=== PATIENT | male | born 1965 | race Caucasian/White ===

== ENCOUNTER 2016-08-06 14:35 | Emergency (ER) | payer SELFPAY ==
[2016-08-06 15:00] LABS: BASOPHILS % 1.3 (0.0-1.5); EOSINOPHILS % 3.1 % (0.0-6.8); MEAN CORPUSCULAR HEMOGLOBIN 31.4 pg (28.0-34.0); MEAN CORPUSCULAR VOLUME 91.9 fl (80.0-100.0); MONOCYTES % 4.9 % (0.0-11.0); NEUTROPHILS # 5.7 # k/uL (1.4-7.7)
[2016-08-06] MEDS: KETOROLAC TROMETHAMINE 30 MG/1ML VIAL IVP ONE (15:00)
[2016-08-06] MEDS: 0.9 % SODIUM CHLORIDE 1,000 ML IV ONE (15:10)
[2016-08-06 15:16] LABS: eGFR (African) > 60; eGFR (Non-African) > 60
[2016-08-06] MEDS: ORPHENADRINE CITRATE 60 MG/2ML IM ONE (15:26)
--- NOTE | 2016-08-06 16:32 | ED Physician Documentation ---
Abdominal Pain - HISTORIAN Historian: patient, friend - HPI Stated Complaint: left sided back pain Chief Complaint: Abdominal Pain Onset: days ago (yesterday) Timing: worse Context: denies: out of country travel, bad food, recent trauma Severity: moderate Quality: pain, sharp Associated Symptoms: back pain, other (flank pain). denies: fever, chills, nausea, vomiting, diarrhea Further Comments: yes (51 year old male patient presents with complaint of left flank and LLQ pain. Patient states he coughed last night and fell to his knees in pain. Reports pain worse with movement. Denies fever, nausea or vomiting. Last BM yesterday.) - ROS CONST: no problems GI/: none CVS/RESP: none EYES/ENT: none MS/SKIN/LYMPH: none NEURO/PSYCH: none - SOCIAL HX Smoking History: cigarettes - FAMILY HX Family History: denies: none - PAST HX Past History: none Ischemic Bowel Risk Factors: none Surgeries/Procedures: appendectomy Home Medications: Ambulatory Orders Medication Instructions Recorded NK [NK] 07/02/12 Allergies/Adverse Reactions: Allergies Allergy/AdvReac Type Severity Reaction Status Date / Time acetaminophen [From Percocet] Allergy Verified 08/06/16 15:02 hydrocodone bitartrate Allergy Verified 07/02/12 16:43 [From Vicodin] oxycodone HCl [From Percocet] Allergy Verified 08/06/16 15:02 Penicillins Allergy Verified 07/02/12 16:43 - VITAL SIGNS Vital Signs: Vital Signs Temp Pulse Resp BP Pulse Ox 100.9 F H 74 18 163/104 98 08/06/16 15:02 08/06/16 15:02 08/06/16 15:02 08/06/16 15:02 08/06/16 15:02 - REVIEWED ASSESSMENTS Nursing Assessment Reviewed: Yes Vitals Reviewed: Yes Progress - Progress Progress: Significant amount of air noted on rib xrays, will progress with abd complete. Reviewed lab and xray results with patient. Questions answered, reviewed discharge instructions. 1/2 bottle magnesium citrate given in ER, will discharge with remainder. ED Results Lab/Radiology - Lab Results Lab Results: Lab Results 08/06/16 08/06/16 14:44 14:44 WBC 9.60 K/ul K/ul (4.00-12.00) RBC 4.96 M/ul M/ul (3.90-5.20) Hgb 15.6 g/dL g/dL (12.0-18.0) Hct 45.6 % % (37.0-53.0) MCV 91.9 fl fl (80.0-100.0) MCH 31.4 pg pg (28.0-34.0) MCHC 34.2 g/dL g/dL (30.0-36.0) RDW 12.7 % % (11.3-14.3) Plt Count 211 K/mm3 K/mm3 (130-400) Neut % (Auto) 59.1 % % (39.0-79.0) Lymph % (Auto) 30.1 % % (16.0-50.0) [place] % (Auto) 4.9 % % (0.0-11.0) Eos % (Auto) 3.1 % % (0.0-6.8) Baso % (Auto) 1.3 (0.0-1.5) Neut # (Auto) 5.7 # k/uL # k/uL (1.4-7.7) Lymph # (Auto) 2.9 # k/uL # k/uL (0.6-4.0) [place] # (Auto) 0.5 # k/uL # k/uL (0.0-0.9) Eos # (Auto) 0.3 # k/uL # k/uL (0.0-0.6) Baso # (Auto) 0.1 # k/uL # k/uL (0.0-0.5) Reactive Lymphs % 1.5 % % (0.0-5.0) Reactive Lymphs # 0.1 # k/uL # k/uL (0.0-0.8) Sodium 143 mmol/L mmol/L (136-145) Potassium 3.6 mmol/L mmol/L (3.5-5.0) Chloride 108 mmol/L mmol/L (98-110) Carbon Dioxide 34 mmol/L H mmol/L (20-32) BUN 12 mg/dL mg/dL (10-26) Creatinine 0.9 mg/dL mg/dL (0.4-1.5) Estimated Creat Clear 95 Est GFR ( Amer) > 60 (60 - ) Est GFR (Non-Af Amer) > 60 (60 - ) Glucose 125 mg/dL H mg/dL (70-99) Calcium 10.4 mg/dL mg/dL (8.5-10.5) Total Bilirubin 0.4 mg/dL mg/dL (0.2-1.2) AST 24 U/L U/L (0-41) ALT 20 U/L U/L (0-45) Alkaline Phosphatase 97 U/L U/L (46-116) Total Protein 8.2 g/dL g/dL (6.0-8.5) Albumin 5.1 g/dL g/dL (3.0-5.5) - Radiology Radiology Impressions: Examination: Plain film chest/ribs History: Chest/rib discomfort Findings: 4 views of the chest/ribs demonstrates normal cortical margins. No fracture or dislocation. No infiltrate. Impression: No rib fracture. No infiltrate. Electronically signed on Aug 06, 2016 4:06:36 PM CDT by: Jose David Blakely Examination: Abdomen series History: Abdominal discomfort Findings: 3 views obtained of the abdomen. No abnormal dilation of the small bowel. Air and stool throughout the large bowel. No suspicious calcification projecting over the renal fossa or the lower pelvic region. Osseous structures are appropriate for age. Impression: Moderate amount of large bowel stool and air. No abnormal dilation of the small bowel. No suspicious calcifications. Electronically signed on Aug 06, 2016 4:19:08 PM CDT by: Jose David Blakely - Orders Orders: ED Orders Category Date Time Status Place IV Lock 1T Care 08/06/16 14:44 Active ABDOMEN COMPLETE [RAD] Stat Exams 08/06/16 Taken RIBS UNILAT 2 VIEWS [RAD] Stat Exams 08/06/16 Taken CBC/PLATELET/DIFF Stat Lab 08/06/16 14:44 Completed CMP Stat Lab 08/06/16 14:44 Completed UA W/MICRO IF INDICATED Stat Lab 08/06/16 14:42 Ordered 0.9 % Sodium Chloride [Normal Saline] 1,000 ml Med 08/06/16 14:44 Discontinued IV NOW Ketorolac Tromethamine [Toradol] Med 08/06/16 14:44 Discontinued 30 mg IVP NOW ONE Magnesium Citrate [Citrate of Magnesia] Med 08/06/16 16:23 Discontinued 150 ml PO NOW ONE Orphenadrine Citrate [Norflex] Med 08/06/16 15:19 Discontinued 60 mg IM NOW ONE Simethicone [Gas-X] Med 08/06/16 16:28 Discontinued 160 mg PO NOW ONE Abdominal Pain Physical Exam - Physical Exam General Appearance: moderate distress EENT: eye inspection normal, KOBE RESPIRATORY: no resp distress, chest non-tender, breath sounds normal CVS: reg rate & rhythm, heart sounds normal, equal pulses, no murmur, no gallop , PMI nml, no JVD, no friction rub, 24 ABDOMEN: soft, no organomegaly, normal bowel sounds, no abdominal bruit, no distension, tenderness (LLQ). 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 NEURO: oriented X3, CN's nml as tested, motor nml, sensation nml Vital Signs: Vital Signs Temp Pulse Resp BP Pulse Ox 100.9 F H 74 18 163/104 98 08/06/16 15:02 08/06/16 15:02 08/06/16 15:02 08/06/16 15:02 08/06/16 15:02 Discharge Clincal Impression: Constipation Qualifiers: Constipation type: unspecified constipation type Qualified Code(s): K59.00 - Constipation, unspecified Abdominal pain Qualifiers: Abdominal location: generalized Qualified Code(s): R10.84 - Generalized abdominal pain Referrals: Primary Doctor,No [Primary Care Provider] - 2 Days Additional Instructions: You should have multiple large BMs today Repeat 1/2 bottle magnesium in the AM if you have not had multiple large BM's Over the counter - Simethicone : such as gas Ex or beano. Follow package instructions. Return to the emergency department or call your doctor, if you are having severe abdominal pain, fever >101.0, or if there is blood in the vomit or diarrhea, or you cannot keep down liquids or solid food. Home Medications: Ambulatory Orders NK [NK] 07/02/12 Condition: Stable Disposition: 01 HOME, SELF-CARE Decision to Admit: NO Decision Time: 16:32
[2016-08-06] MEDS: SIMETHICONE 80 MG TAB.CHEW PO ONE (16:42)
[2016-08-06] MEDS: MAGNESIUM CITRATE 296 ML BOTTLE PO ONE (16:42)
[2016-08-06 16:49] VITALS: BP 133/84
--- NOTE | 2016-08-06 18:29 | Diagnostic Imaging Report ---
[facility] (INDIGO) - ER~ [facility] [address] [address] ~ ~ ~ ~ Report Submission Date: Aug 06, 2016 4:19:08 PM CDT Patient ~ Study Name: ROMAN TAYLOR ~ Date: Aug 06, 2016 3:56:56 PM CDT ~ Modality Type: CR Gender: M ~ Description: ABDOMEN : 65 ~ Institution: [facility] Physician: COURT HYDE) - ER ~ ~ ~ ~ Examination: Abdomen series History: Abdominal discomfort Findings: 3 views obtained of the abdomen. No abnormal dilation of the small bowel. Air and stool throughout the large bowel. No suspicious calcification projecting over the renal fossa or the lower pelvic region.~ Osseous structures are appropriate for age. Impression: Moderate amount of large bowel stool and air. No abnormal dilation of the small bowel. No suspicious calcifications. ~ Electronically signed on Aug 06, 2016 4:19:08 PM CDT by: Jose David LEE
--- NOTE | 2016-08-06 18:30 | Diagnostic Imaging Report ---
[facility] (INDIGO) - ER~ [facility] [address] [address] ~ ~ ~ ~ Report Submission Date: Aug 06, 2016 4:06:36 PM CDT Patient ~ Study Name: ROMAN TAYLOR ~ Date: Aug 06, 2016 3:30:22 PM CDT ~ Modality Type: CR Gender: M ~ Description: CHEST : 65 ~ Institution: [facility] Physician: COURT HYDE) - ER ~ ~ ~ ~ Examination: Plain film chest/ribs History: Chest/rib discomfort Findings: 4 views of the chest/ribs demonstrates normal cortical margins. No fracture or dislocation. No infiltrate. Impression: No rib fracture. No infiltrate. ~ Electronically signed on Aug 06, 2016 4:06:36 PM CDT by: Jose David LEE
[2016-08-07 05:40] LABS: APPEARANCE,URINE CLEAR (CLEAR); COLOR,URINE YELLOW (YELLOW); OCCULT BLOOD,URINE NEGATIVE (NEGATIVE); UROBILINOGEN URINE 0.2 Eu (0.2-1.0)
== END 2016-08-06 16:46 | disposition home or self-care (01) ==
LOC: ED 14:35
DX: K59.00 Constipation, unspecified (principal); R10.84 Generalized abdominal pain
CPT/HCPCS: 71100; 74020; 80053; 81002; 85025; J1885; J2360; J7030; 96361; 96372; 96374; 99283; S1016